=== PATIENT | male | born 1965 | race Caucasian/White ===

== ENCOUNTER → 2017-05-23 | Outpatient (CLI) | payer OTHER ==
[~2017-05-23] MED LIST: GABA-113 PO; IBUP-1428 PO; MULT-506 PO; OXYC-57 PO
[2017-05-23 12:40] LABS: MEAN CORPUSCULAR HGB CONC 35.2 g/dl (32-36)
[2017-05-23 12:49] LABS: HEMATOCRIT 37.5 % (42-52); HEMOGLOBIN 13.2 g/dL (14.0-18.0); MEAN CELL VOLUME 89.3 fL (80-100); MEAN CORPUSCULAR HEMOGLOBIN 31.4 pg (25-34); RED CELL DISTRIBUTION WIDTH CV 12.5 % (11.5-14.5); RED CELL DISTRIBUTION WIDTH SD 40.5 fL (36.4-46.3); WHITE BLOOD COUNT 4.81 K/uL (4.8-10.8)
[2017-05-23 13:02] LABS: BASO % 1.2 %; BASO ABS # 0.06 K/uL (0-0.2); EOS % 1.5 %; EOS ABS # 0.07 K/uL (0-0.5); IG# 0.01 K/uL (0.00-0.02); LYMPH % 25.6 %; LYMPH ABS # 1.23 K/uL (1.2-3.4); MEAN PLATELET VOLUME 13.2 fL (7.4-10.4); MONO % 12.1 %; MONO ABS # 0.58 K/uL (0.11-0.59); NEUT % 59.4 %; NEUT ABS # 2.86 K/uL (1.4-6.5); PLATELET COUNT 146 K/uL (130-400)
[2017-05-23 13:03] LABS: ALBUMIN 3.8 gm/dl (3.4-5.0); ALT/SGPT 33 U/L (12-78); BLOOD UREA NITROGEN 15 mg/dl (7-18); CALCIUM 8.4 mg/dl (8.5-10.1); CARBON DIOXIDE 29 mmol/L (21-32); CREATININE 1.11 mg/dl (0.60-1.40); GLUCOSE 85 mg/dl (70-99); POTASSIUM 3.7 mmol/L (3.5-5.1); SODIUM 135 mmol/L (136-145)
[2017-05-23 13:08] LABS: ALKALINE PHOSPHATASE 51 U/L (45-117); AST/SGOT 19 U/L (15-37); TOTAL PROTEIN 6.8 gm/dl (6.4-8.2)
== END | disposition home or self-care (01) ==
LOC: C.LABPBG 08:41
PROVIDERS: ATTEND Family Medicine
DX: N50.811 Right testicular pain (principal)

== ENCOUNTER → 2017-05-31 | Outpatient (CLI) | payer OTHER ==
--- NOTE | 2017-05-31 14:38 | DIAGNOSTIC IMAGING REPORT ---
(TESTICULAR) SCROTUM-CONT CLINICAL HISTORY: 51 years-old Male with N50.811. Acute scrotal pain COMPARISON STUDY: None available TECHNIQUE: Real-time, grayscale, and color Doppler sonography of the testes and scrotum is performed. Images are reviewed in the transverse and longitudinal planes. FINDINGS: RIGHT HEMISCROTUM: The right testis measures 3.9 x 3.0 x 2.2 cm and the parenchyma appears unremarkable. No intratesticular mass is seen. Normal-appearing arterial inflow is present within the right testicle. Tiny right epididymal head cysts are noted measuring up to 2 mm. No varicocele or hydrocele is identified. LEFT HEMISCROTUM: The left testis measures 3.4 x 3.1 x 2.1 cm. Left testicular cyst measures 0.3 cm in greatest dimension. Left testicular parenchyma is otherwise unremarkable. No intratesticular mass is seen. Normal-appearing arterial inflow is present within the left testicle. Small cysts of the left epididymis are noted measuring up to 3 mm. Small left-sided varicocele. No large hydrocele identified. IMPRESSION: 1. 0.3 cm cyst of the left testicle with otherwise unremarkable sonographic appearance of the bilateral testicles. No suspicious mass lesions or evidence of torsion. 2. Left-sided varicocele. 3. Tiny subcentimeter bilateral epididymal head cysts. The above report was generated using voice recognition software. It may contain grammatical, syntax or spelling errors. Electronically signed by: Facundo Cardozo M.D. 05/31/2017 2:37 PM Dictated Date/Time: 05/31/2017 2:34 PM
== END | disposition home or self-care (01) ==
LOC: C.ULTR 13:36
PROVIDERS: ATTEND Family Medicine
DX: N50.811 Right testicular pain (principal); I86.1 Scrotal varices; N44.2 Benign cyst of testis

== ENCOUNTER → 2017-06-22 | Outpatient (CLI) | payer OTHER | END | disposition home or self-care (01) | LOC: C.LABPBG 08:58 | PROVIDERS: ATTEND Family Medicine | DX: Z13.220 Encounter for screening for lipoid disorders (principal) ==